=== PATIENT | female | born 2000 | race Caucasian/White ===

== ENCOUNTER 2020-10-12 14:09 | Outpatient (REF) | payer BC, MEDICAID, SELFPAY ==
[2020-10-13 11:00] LABS: BV Int Neg Control Negative (Negative); BV Int Pos Control Positive (Positive)
[2020-10-13 11:02] LABS: CT PCR NOT DETECTED (Not Detect.); NG PCR NOT DETECTED (Not Detect.)
[2020-10-17 20:12] LABS: HPV mRNA E6/E7 rflx Not Detected (Not Detected)
== END 2020-10-12 14:10 | disposition home or self-care (01) ==
LOC: HO.LAB 14:09
PROVIDERS: Visit Provider Advanced Practice Midwife
DX: Z01.419 Encounter for gynecological examination (general) (routine) without abnormal findings (principal); R68.82 Decreased libido; G43.009 Migraine without aura, not intractable, without status migrainosus; N89.8 Other specified noninflammatory disorders of vagina; M32.9 Systemic lupus erythematosus, unspecified; Z79.899 Other long term (current) drug therapy; Z20.2 Contact with and (suspected) exposure to infections with a predominantly sexual mode of transmission
CPT/HCPCS: 87480; 87491; 87510; 87591; 87624; 87625; 87660; 88142

== ENCOUNTER → 2020-12-06 13:51 | Outpatient (BNVA) | payer BC, MEDICAID, SELFPAY | PROVIDERS: Visit Provider Advanced Practice Midwife | DX: Z76.89 Persons encountering health services in other specified circumstances (principal) ==

== ENCOUNTER 2023-10-01 08:46 | Outpatient (AMB) | payer OTHER, SELFPAY ==
--- NOTE | 2023-10-01 08:50 | MHC.PC.OV ---
Vital Signs 10/01/23 08:51 Height 5 ft 2 in Intake Visit Reasons: physical Intake Note: Patient is here today for a physical. 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 Donor Relations Coordinator: Not Required per policy Accompanied by: Self / Same As Patient Allergies rituximab [RITUXIMAB] Allergy (Severe, Verified 10/01/23 08:51) ANAPHYLAXIS cinnamon [CINNAMON] Allergy (Unknown, Verified 10/01/23 08:51) RASH Tobacco use date assessed: 10/01/23 Dental Screening Dental Screen Date: 10/01/23 Did you have a dental visit in the last 12 months?: Yes Did you have a dental problem in the last 6 months where you did not have access to dental care?: No Was dental information given to patient?: Patient has dentist [facility] Medical History (Updated 04/03/23 @ 17:23 by SHANNA Barajas) Excessive cerumen in both ear canals Migraine with aura History of anxiety History of depression Stress headaches IBS (irritable bowel syndrome) Lupus Surgical History Hx of appendectomy Family History Maternal Aunt History of breast cancer Social History Housing: House Alcohol intake: current Alcohol intake frequency: holidays/special occasions only Patient Tobacco Use Status: Never used Tobacco e-Cigarette/Vaping Use: Never Used Second Hand Smoke Exposure: No service: No Current occupational status: unemployed Sexual orientation: Straight/Heterosexual Gender identity: Female Cognitive needs: No Hearing needs: No Vision needs: No Female Reproductive History Menstrual Age of Menarche: 17 Questionnaire Thrive Questionnaire Date Thrive assessed: 04/03/23 GERONIMO-7 AMB Questionnaire GERONIMO-7 Date GERONIMO - 7 assessed: 04/03/23 Source: Developed by Drs. Darrick Mejia, Michelle Mohamud, Jorge Luis Smith and colleagues, with an educational vega from [employer]. Physical exam (Primary Care) Tobacco/Smoking Status: Tobacco use Status Tobacco use date assessed 04/03/23 04/03/23 15:40 Patient Tobacco Use Status Never used Tobacco 04/03/23 15:40 e-Cigarette/Vaping Use Never Used 04/03/23 15:40 Thrive Assessment: Date of Thrive Assessment Date Thrive assessed 04/03/23 04/03/23 15:40 Coding
[2023-10-01 08:51] VITALS: BP 100/60; PULSE 85; O2SAT 96; BMI 22.2
--- NOTE | 2023-10-01 09:00 | MHC.PC.OV ---
Vital Signs 10/01/23 08:51 Height 5 ft 2 in Weight 121 lb 2 oz BMI 22.2 BP 100/60 Blood Pressure Location Lt brachial Position Sitting Pulse 85 Pulse Source Pulse Oximeter Pulse Oximetry (%) 96 Oxygen Delivery Method Room Air Intake Visit Reasons: physical Intake Note: Patient is here today for a physical. 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 per policy Accompanied by: Self / Same As Patient Allergies rituximab [RITUXIMAB] Allergy (Severe, Verified 10/01/23 09:16) ANAPHYLAXIS cinnamon [CINNAMON] Allergy (Unknown, Verified 10/01/23 09:16) RASH Medication List - Last Reconciled 10/01/23 by SHANNA Barajas albuterol sulfate 90 mcg/actuation (Ventolin HFA) 2 puffs inhalation Q4-6H PRN amitriptyline 25 mg PO BEDTIME azathioprine 100 mg PO DAILY cholecalciferol (vitamin D3) 25 mcg PO DAILY fexofenadine (Charley Allergy) 60 mg PO BID fluticasone propionate 50 mcg/actuation 1 spray intranasal DAILY hydroxychloroquine 300 mg PO DAILY omeprazole 40 mg PO DAILY ondansetron HCl 4 mg PO Q8H PRN Tobacco use date assessed: 10/01/23 Dental Screening Dental Screen Date: 10/01/23 Did you have a dental visit in the last 12 months?: No Did you have a dental problem in the last 6 months where you did not have access to dental care?: No Was dental information given to patient?: No HPI physical HPI Details Patient is a 23-year-old female who presents today for physical exam. Medical history significant for IBS - patient had GI referral-was not seen yet-will place new referral, history of anxiety and depression - not interested in counseling referral - amitriptyline 25 mg at bedtime prescribed by Rheumatology in [place], asthma, lupus - followed by Rheumatology in [place], migraine headaches without aura.? Patient is followed with rheumatology in [place] for lupus management.? Patient reports long-term IBS with diarrhea and constipation and she would like to be seen by a specialist. In addition, patient reports left arm eczema that started couple months ago and spread it in the past couple weeks to her face, reports using [id number] Vaseline and steroidal cream with no much improvement. Pap smear negative 10/2022 with [facility]. Tetanus vaccine up-to-date. Patient will call for dental exam. Up-to-date with eye exam. [facility] Medical History (Updated 10/01/23 @ 09:33 by SHANNA Barajas) Low libido Sinusitis Vaginal discharge Excessive cerumen in both ear canals Migraine with aura History of anxiety History of depression Stress headaches IBS (irritable bowel syndrome) Lupus Surgical History Hx of appendectomy Family History Maternal Aunt History of breast cancer Social History Housing: House Alcohol intake: current Alcohol intake frequency: holidays/special occasions only Patient Tobacco Use Status: Never used Tobacco e-Cigarette/Vaping Use: Never Used Second Hand Smoke Exposure: No service: No Current occupational status: unemployed Sexual orientation: Straight/Heterosexual Gender identity: Female Cognitive needs: No Hearing needs: No Vision needs: No Female Reproductive History Menstrual Age of Menarche: 17 Questionnaire Thrive Questionnaire Date Thrive assessed: 04/03/23 GERONIMO-7 AMB Questionnaire GERONIMO-7 Date GERONIMO - 7 assessed: 04/03/23 Source: Developed by Drs. Darrick Mejia, Michelle Mohamud, Jorge Luis Smith and colleagues, with an educational vega from [employer]. Review of Systems Const Denies body aches, Denies chills and Denies fever(s) Eyes Denies change in vision ENT Denies dizziness, Denies otalgia, Denies sinus pain and Denies sore throat Card Denies chest pain, Denies edema, Denies lightheadedness and Denies dyspnea Resp Denies chest congestion, Denies cough and Denies dyspnea GI Reports as per HPI, Denies abdominal pain, Reports constipation, Reports diarrhea, Denies nausea and Denies vomiting Denies dysuria Musc Denies myalgias Skin/Breast Denies lesions and Reports rash Neuro Denies dizziness Physical exam (Primary Care) Vital Signs: Last Vital Signs Pulse 85 10/01/23 08:51 BP 100/60 10/01/23 08:51 Pulse Ox 96 10/01/23 08:51 Oxygen Delivery Method Room Air 10/01/23 08:51 BMI result Body Mass Index 22.2 Tobacco/Smoking Status: Tobacco use Status Tobacco use date assessed 10/01/23 10/01/23 09:06 Patient Tobacco Use Status Never used Tobacco 10/01/23 09:06 e-Cigarette/Vaping Use Never Used 10/01/23 09:06 Thrive Assessment: Date of Thrive Assessment Date Thrive assessed 04/03/23 10/01/23 09:06 Const General: cooperative and no acute distress Orientation/consciousness: patient oriented x3 HENMT Head: Yes normocephalic and Yes atraumatic Ears: TM's normal bilaterally Face and sinus: Yes sinuses nontender Mouth: oropharynx normal and moist mucous membranes Throat: Yes posterior oropharynx normal Eyes General: appearance normal, both eyes and all related structures Pupils: Equal, round and reactive pupils present EOM: EOMs intact bilaterally Neck Neck: Yes normal visual inspection, Yes full ROM and Yes no lymphadenopathy Thyroid: Thyroid normal Resp Effort & Inspection: normal respiratory effort and able to speak in complete sentences Auscultation: clear to auscultation bilaterally, no crackles, no rales, no rhonchi and no wheezes Cardio Rate: regular rate Rhythm: regular rhythm Heart sounds: S1 normal heart sound present, S2 normal heart sound present and no murmurs GI Palpation (GI): Soft to palpation, not firm, nontender, no guarding, not rigid and no hepatosplenomegaly Auscultation: normal bowel sounds General: No CVA tenderness Back/Spine/Pelvis Back: No CVA tenderness Skin Other: Left neck with small slightly erythematous flat area, left AC arm with slightly erythematous flat area. Generalized face with small slightly flat erythematous areas. No signs of infection noted Neuro General: patient oriented x3 Cranial nerves: Yes Equal, round and reactive pupils present Gait exam (Neuro): Normal gait present Extrem General: Yes full ROM and No edema Assessment and Plan Assessment & Plan (1) IBS (irritable bowel syndrome): Code(s): K58.9 - Irritable bowel syndrome without diarrhea Plan: Gastroenterology referral for an evaluation and treatment She uses [id number] MiraLax p.r.n. for constipation (2) History of depression: Code(s): Z86.59 - Personal history of other mental and behavioral disorders Plan: She has declined counseling referral Amitriptyline 25 mg at bedtime - prescribed by rheumatology in [place] (3) History of anxiety: Code(s): Z86.59 - Personal history of other mental and behavioral disorders Plan: Same as above (4) Asthma: Code(s): J45.909 - Unspecified asthma, uncomplicated Plan: Stable Continue albuterol p.r.n. (5) Lupus: Comment: [facility] Dx age 12 Code(s): M32.9 - Systemic lupus erythematosus, unspecified Plan: Continue to follow-up with rheumatology Dr. Donovan in [place] (6) Migraine without aura: Code(s): G43.009 - Migraine without aura, not intractable, without status migrainosus Plan: Continue amitriptyline 25 mg at bedtime Patient can continue [id number] Advil or Tylenol as needed (7) Eczema: Code(s): L30.9 - Dermatitis, unspecified Plan: Dermatology referral Triamcinolone cream daily-do not use this cream on face Can continue zyeg-wah-mwphygm cortisone cream for face lesions as well as Vaseline (8) Adult general medical exam: Comment: Tdap UTD. Covid-19 IZs Pfizer x2. 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 Code(s): Z00.00 - Encounter for general adult medical examination without abnormal findings Orders: Orders Comprehensive Met. Panel Today Z00.00 - Encounter for general adult medical examination without abnormal findings Vitamin D 25-OH Total Today Z00.00 - Encounter for general adult medical examination without abnormal findings TSH reflex Free T4 Today Z00.00 - Encounter for general adult medical examination without abnormal findings Complete Blood Count Auto Diff Today Z00.00 - Encounter for general adult medical examination without abnormal findings Referrals Gastroenterology Referral K58.9 - Irritable bowel syndrome without diarrhea Dermatology Referral L30.9 - Dermatitis, unspecified Medications: New triamcinolone acetonide 0.1% 1 appl topical DAILY 14 days 15 grams 0RF L30.9 - Dermatitis, unspecified Coding Level of Care Code Est Pt Prev Care 18-39y(55261) Diagnoses IBS (irritable bowel syndrome) K58.9 History of depression Z86.59 History of anxiety Z86.59 Asthma J45.909 Lupus M32.9 Migraine without aura G43.009 Eczema L30.9 Adult general medical exam Z00.00
== END 2023-10-01 09:31 | disposition home or self-care (01) ==
PROVIDERS: Visit Provider Nurse Practitioner Family
DX: Z00.00 Encounter for general adult medical examination without abnormal findings (principal); M32.9 Systemic lupus erythematosus, unspecified; K58.9 Irritable bowel syndrome, unspecified; Z86.59 Personal history of other mental and behavioral disorders; J45.909 Unspecified asthma, uncomplicated; G43.009 Migraine without aura, not intractable, without status migrainosus; L30.9 Dermatitis, unspecified
CPT/HCPCS: 99395

== ENCOUNTER 2024-12-22 15:20 | Outpatient (AMB) | payer OTHER, SELFPAY ==
--- NOTE | 2024-12-22 15:30 | A.OFFPC_ITS ---
Vital Signs 12/22/24 15:32 Height 5 ft 2 in Weight 118 lb BMI 21.6 BP 112/62 Blood Pressure Location Lt brachial Position Sitting Pulse 75 Pulse Source Pulse Oximeter Temp 97.8 F Temp Source Skin Pulse Oximetry (%) 98 Oxygen Delivery Method Room Air Intake Visit Reasons: NADJA Dueñas Intake Note: Patient is here today for NADJA from [facility]. Pt decline flu shot today. Tailor Apprentice Required: No Pararescue Craftsman: Not Required per policy Accompanied by: Self / Same As Patient Allergies rituximab [RITUXIMAB] Allergy (Severe, Verified 12/22/24 15:52) ANAPHYLAXIS cinnamon [CINNAMON] Allergy (Unknown, Verified 12/22/24 15:52) RASH Medication List - Last Reconciled 12/22/24 by Deirdre Wells PA-C albuterol sulfate 90 mcg/actuation (Ventolin HFA) 2 puffs inhalation Q4-6H PRN amitriptyline 25 mg PO BEDTIME azathioprine 100 mg PO DAILY cholecalciferol (vitamin D3) 25 mcg PO DAILY fexofenadine (Charley Allergy) 60 mg PO BID hydroxychloroquine 300 mg PO DAILY omeprazole 40 mg PO DAILY ondansetron HCl 4 mg PO Q8H PRN triamcinolone acetonide 0.1% 1 appl topical DAILY 14 days Tobacco use date assessed: 12/22/24 Dental Screening Dental Screen Date: 12/22/24 Did you have a dental visit in the last 12 months?: No Did you have a dental problem in the last 6 months where you did not have access to dental care?: No Was dental information given to patient?: No HPI NADJA Dueñas HPI Details 24-year-old female with past medical his tory migraine, lupus, asthma, anxiety, depression, IBS last seen by nurse practitioner 09/2023 coming in for transfer of care. Patient tells us today she sees a specialist in [place] for management of her lupus and the specialist also manages her acid reflux as well as her migraines. She states she often will have migraines and feels the amitriptyline does not help. She will have a migraine 3-4 times per week that are typically one-sided and will be accompanied with nausea and occasionally vomiting. She also feels her acid reflux has been worsening despite the use of omeprazole 40 mg. She was previously being seen by a GI specialist but has not been seen in many years. Lastly she mentions she will have occasional episodes of chest pain that feel like a pressure and does not identify any inciting or relieving factors. She does mentioned however these episodes have becoming more frequent and more intense and denies any palpitations. [facility] Medical History (Updated 12/22/24 @ 16:02 by Deirdre Wells PA-C) Low libido Sinusitis Vaginal discharge Excessive cerumen in both ear canals Migraine with aura History of anxiety History of depression Stress headaches IBS (irritable bowel syndrome) Lupus Surgical History Hx of appendectomy Family History Maternal Aunt History of breast cancer Social History Housing: House Alcohol intake: current Alcohol intake frequency: holidays/special occasions only Patient Tobacco Use Status: Never used Tobacco e-Cigarette/Vaping Use: Never Used Second Hand Smoke Exposure: No service: No Current occupational status: employed and student Sexual orientation: Straight/Heterosexual Gender identity: Female Cognitive needs: No Hearing needs: No Vision needs: Yes (Glasses) Female Reproductive History Menstrual Age of Menarche: 17 control method: none Total pregnancies: 0 History of abnormal pap smear: No Questionnaire PHQ-9 Over the last 2 weeks, how often have you been bothered by any of the following problems? 1. Little interest or pleasure in doing things: several days 2. Feeling down, depressed, or hopeless: nearly every day 3. Trouble falling or staying asleep, or sleeping too much: nearly every day 4. Feeling tired or having little energy: nearly every day 5. Poor appetite or overeating: nearly every day 6. Feeling bad about yourself - or that you are a failure or have let yourself or your family down: nearly every day 7. Trouble concentrating on things, such as reading the newspaper or watching television: several days 8. Moving or speaking so slowly that other people could have noticed. Or the opposite - being so fidgety or restless that you have been moving around a lot more than usual: several days 9. Thoughts that you would be better off or of hurting yourself in some way: not at all Total score: 18 Depression Screening Interpretation: Positive Depression Screening Follow-up: Existing condition and Declines treatment Depression Screening Done: Yes Source: Developed by Drs. Darrick Mejia, Michelle Mohamud, Jorge Luis Smith and colleagues, with an educational vega from [employer]. Thrive Questionnaire Date Thrive assessed: 12/22/24 I am a: Patient What is your living situation today?: I have a steady place to live Within the past 12 months, did the food you bought not last and you didn't have the money to get more?: Never true Within the past 12 months, did you worry whether your food would run out before you got money to buy more?: Never true Do you have trouble paying for medicines?: No Do you have trouble getting transportation to medical appointments?: No Do you have trouble paying your heating and electricity bill?: No Do you have trouble taking care of your child, family member or friend?: No Do you have trouble with day-to-day activities such as bathing, preparing meals, shopping, managing finances, etc.?: No Are you currently unemployed and looking for a job?: No Are you interested in more education?: No Please select the resources that you would like help with: None Currently or been in a relationship where the following occur: No concerns reported THRIVE Score: 0 AUDIT C Alcohol Use Questionnaire (AUDIT-C) 1. How often do you have a drink containing alcohol?: Never Total Score: 0 GERONIMO-7 AMB Questionnaire GERONIMO-7 Date GERONIMO - 7 assessed: 12/22/24 Feeling nervous, anxious, or on edge: 3 = Nearly every day Not being able to stop or control worryin = Nearly every day Worrying too much about different things: 3 = Nearly every day Trouble relaxin = Nearly every day Being so restless that it is hard to sit still: 1 = Several days Becoming easily annoyed or irritable: 1 = Several days Feeling afraid as if something awful might happen: 1 = Several days Total GERONIMO-7 score (0-4 normal; 5-9 mild; 10-14 moderate; 15-21 severe): 15 Source: Developed by Michelle Caldwell Kurt Kroenke and colleagues, with an educational vega from [employer]. GERONIMO-7 Assessment Billing GERONIMO-7 Assessment Tool: GERONIMO-7 Assessment 12709 Review of Systems Const Denies body aches, Denies chills, Denies fever(s), Reports headache(s) and Denies poor appetite Eyes Reports no additional complaints and Reports requires corrective lenses ENT Denies dysphagia, Denies dizziness, Reports headache(s) and Denies odynophagia Card Reports chest pain, Denies syncope, Denies edema, Denies irregular heart rhythm, Denies lightheadedness and Reports dyspnea Resp Denies cough and Reports dyspnea GI Denies abdominal pain, Reports constipation, Denies dysphagia, Reports dyspepsia, Reports diarrhea, Reports nausea, Denies odynophagia and Reports vomiting Reports no additional complaints Musc Reports no additional complaints and Denies abnormal gait Skin/Breast Reports system reviewed and no additional complaints, except as documented Neuro Denies abnormal gait, Denies dizziness, Denies syncope and Reports headache(s) Psych Reports no additional complaints Physical exam (Primary Care) Vital Signs: Last Vital Signs Temp 97.8 F 12/22/24 15:32 Pulse 75 12/22/24 15:32 BP 112/62 12/22/24 15:32 Pulse Ox 98 12/22/24 15:32 Oxygen Delivery Method Room Air 12/22/24 15:32 BMI result Body Mass Index 21.6 Tobacco/Smoking Status: Tobacco use Status Tobacco use date assessed 12/22/24 12/22/24 15:38 Patient Tobacco Use Status Never used Tobacco 12/22/24 15:38 e-Cigarette/Vaping Use Never Used 12/22/24 15:38 PHQ-9: PHQ-9 Score PHQ-9: Total score 18 12/22/24 15:55 Depression Screening Interpretation: Positive Depression Screening Follow-up: Existing condition and Declines treatment Thrive Assessment: Date of Thrive Assessment Date Thrive assessed 12/22/24 12/22/24 15:38 Currently or been in a relationship where the following occur: No concerns reported Const General: cooperative, healthy appearing, comfortable and no acute distress Orientation/consciousness: patient oriented x3 HENMT Head: Yes normocephalic Ears: hearing grossly normal bilaterally General nose exam: Normal external nose present Eyes General: appearance normal, both eyes and all related structures Conjunctivae: conjunctivae normal Neck Neck: Yes full ROM and Yes no lymphadenopathy Resp Effort & Inspection: normal respiratory effort Auscultation: clear to auscultation bilaterally, no crackles, no rales, no rhonchi and no wheezes Cardio Rate: regular rate Rhythm: regular rhythm Skin General skin exam: no rashes or lesions noted Neuro General: patient oriented x3 Gait exam (Neuro): Normal gait present Extrem General: Yes normal to inspection, Yes full ROM and No edema Psych Affect: normal affect Attitude: cooperative Insight: Good insight present (Psych) Judgement: Good judgement present (Psych) Coding Level of Care Code Est Pt Level 4 (06426) Diagnoses IBS (irritable bowel syndrome) K58.9 History of depression Z86.59 History of anxiety Z86.59 Asthma J45.909 Lupus M32.9 Migraine with aura G43.109 Chest pain R07.9 GERD (gastroesophageal reflux disease) K21.9 Cervical cancer screening Z12.4 Additional Codes GERONIMO-7 Assessment Billing - GERONIMO-7 Assessment Tool: GERONIMO-7 Assessment 63206 ([id number]) Assessment & Plan Assessment & Plan (1) IBS (irritable bowel syndrome): Code(s): K58.9 - Irritable bowel syndrome, unspecified Category: Medical Plan: Patient has alternating constipation and diarrhea consistent with IBS which has a previous diagnosis of hers. Discussed with patient about diet modification and can consider referral to GI (2) History of depression: Code(s): Z86.59 - Personal history of other mental and behavioral disorders Category: Medical Plan: Patient has a history of depression as well as anxiety but declines the need for medication or counseling at this time. (3) History of anxiety: Code(s): Z86.59 - Personal history of other mental and behavioral disorders Category: Medical Plan: Patient has a history of anxiety and depression and does have a positive PHQ-9 and geronimo 7 today however she is declining treatment at this time. She agrees to reach out if symptoms worsened or if she would like to pursue treatment through counseling or medical management. (4) Asthma: Code(s): J45.909 - Unspecified asthma, uncomplicated Category: Medical Plan: Asthma currently controlled on present medications. Continue on albuterol as needed. Avoid triggers such as allergies. (5) Lupus: Comment: [facility] Dx age 12 Code(s): M32.9 - Systemic lupus erythematosus, unspecified Category: Medical Plan: Continues to follow with specialist in [place] and currently on hydroxychloroquine. She is following with [place] [facility] and plan to switch to an adult provider in the [place] network in the next several years. (6) Migraine with aura: Code(s): G43.109 - Migraine with aura, not intractable, without status migrainosus Category: Medical Plan: Patient continues to have migraines despite the use of amitriptyline we will have 3-4 migraines per week accompanied with occasional nausea and vomiting. We will try sumatriptan as abortive medication for the migraines and a plan to refer to Neurology if sumatriptan is not useful. Patient was previously evaluated by neurologist in the past but has not been seen in many years. (7) Chest pain: Code(s): R07.9 - Chest pain, unspecified Category: Medical Plan: Patient complaining of chest pain and pressure occasionally accompanied by shortness of breath sometimes worse with walking or exercise but we will typically come on randomly. Ordered for stress test for further evaluation. (8) GERD (gastroesophageal reflux disease): Code(s): K21.9 - Gastro-esophageal reflux disease without esophagitis Category: Medical Plan: Avoid trigger foods such as citrus, tomato products, soda, caffeine, spicy foods and other foods that may be irritating to your stomach. Avoid laying flat 3-4 hours after eating and elevate the head of the bed 30 degrees to prevent acid from moving into the esophagus. Continue on omeprazole 40 mg. She feels her symptoms are not well managed and has been omeprazole for quite some time. Referral placed for upper GI series further evaluation (9) Cervical cancer screening: Code(s): Z12.4 - Encounter for screening for malignant neoplasm of cervix Category: Medical Plan: Referral placed to gynecology for cervical cancer screening Plan I ordered for updated blood work and patient will follow up in 2 months or sooner if new problems arise and pending blood work. This note was constructed using voice recognition software. While every effort has been made to ensure accuracy and senior benefits manager, still areas may have been included sometimes these areas may affect the content or meeting of the given symptoms. Total time spent caring for the patient today was 20 minutes. This includes time spent before the visit reviewing the chart, time spent during the visit, and time spent after the visit and documentation. Orders: Orders Comprehensive Met. Panel Today Z00.00 - Encounter for general adult medical examination without abnormal findings Complete Blood Count Auto Diff Today Z00.00 - Encounter for general adult medical examination without abnormal findings Vitamin D 25-OH Total Today Z00.00 - Encounter for general adult medical examination without abnormal findings TSH reflex Free T4 Today Z00.00 - Encounter for general adult medical examination without abnormal findings Free T4 (Free Thyroxine) Today Z00.00 - Encounter for general adult medical examination without abnormal findings Vitamin B12 and Folate Today Z00.00 - Encounter for general adult medical examination without abnormal findings CA stress test Today R07.9 - Chest pain, unspecified [place] upper GI series Today K21.9 - Gastro-esophageal reflux disease without esophagitis Referrals [employer]ENT Referral Z12.4 - Encounter for screening for malignant neoplasm of cervix Optometry Referral Z00.00 - Encounter for general adult medical examination without abnormal findings Medications: New sumatriptan succinate take 1 tab at onset of headache; if no relief may repeat 1 tab after at least 2 hrs; max = 4 tabs/24 hr PO 30 tabs 0RF
[2024-12-22 15:32] VITALS: BP 112/62; PULSE 75; TEMP 36.6; O2SAT 98; BMI 21.6
== END 2024-12-22 16:07 | disposition home or self-care (01) ==
PROVIDERS: PCP Nurse Practitioner Family
DX: K58.9 Irritable bowel syndrome, unspecified (principal); Z86.59 Personal history of other mental and behavioral disorders; J45.909 Unspecified asthma, uncomplicated; M32.9 Systemic lupus erythematosus, unspecified; G43.109 Migraine with aura, not intractable, without status migrainosus; R07.9 Chest pain, unspecified; K21.9 Gastro-esophageal reflux disease without esophagitis; Z12.4 Encounter for screening for malignant neoplasm of cervix

== ENCOUNTER → 2024-12-22 15:20 | Outpatient (BNVA) | payer OTHER, SELFPAY | PROVIDERS: PCP Nurse Practitioner Family | DX: K58.9 Irritable bowel syndrome, unspecified (principal); J45.909 Unspecified asthma, uncomplicated; M32.9 Systemic lupus erythematosus, unspecified; R07.9 Chest pain, unspecified; K21.9 Gastro-esophageal reflux disease without esophagitis; Z86.59 Personal history of other mental and behavioral disorders | CPT/HCPCS: 96127; 99212 ==

== ENCOUNTER 2025-03-11 08:15 | Outpatient (REF) | payer OTHER, SELFPAY ==
--- NOTE | ~2025-03-11 | FL_ITS ---
EXAMINATION: XR FLUOROSCOPY UPPER GI WITH AIR CLINICAL INFORMATION: Gastroesophageal reflux disease without esophagitis COMPARISON: None available. TECHNIQUE: Routine upper GI contrast study was performed in upright and lying position. FINDINGS: Oral and oral administration of thick barium and effervescent granules there is normal propagation bolus from the oral cavity through the pharynx, esophagus into stomach without any evidence of obstruction, narrowing or stricture. No extrinsic compression seen. On placing patient in supine and prone lying the course, caliber and peristalsis of the stomach, duodenal bulb and sweep is normal. There is mild gastroesophageal reflux without hiatal hernia. The mucosal pattern of stomach, duodenal bulb and sweep is normal. FLUOROSCOPY TIME: 1 minute 23 seconds DOSE AREA PRODUCT: 725.3 uGy-m2 (microgray-meter squared) FL/FL upper GI w air IMPRESSION: Mild gastroesophageal reflux without hiatal hernia. Electronically signed by: Kyle Garner MD 03/11/2025 09:28 AM EDT
== END 2025-03-11 08:16 | disposition home or self-care (01) ==
LOC: HO.XRAY 08:15
PROVIDERS: Visit Provider Physician Assistant
DX: K21.9 Gastro-esophageal reflux disease without esophagitis (principal)
CPT/HCPCS: 74246

== ENCOUNTER → 2025-03-11 08:20 | Outpatient (BNV) | payer OTHER, SELFPAY | PROVIDERS: Visit Provider Radiology Diagnostic Radiology | DX: K21.9 Gastro-esophageal reflux disease without esophagitis (principal) | CPT/HCPCS: 74246 ==

== ENCOUNTER 2025-07-08 14:26 | Outpatient (AMB) | payer OTHER, SELFPAY ==
--- NOTE | 2025-07-08 14:31 | A.OFFPC_ITS ---
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 Accompanied by: Self / Same As Patient Allergies rituximab (RITUXIMAB) Allergy (Severe, Verified 07/08/25 14:48) ANAPHYLAXIS cinnamon (CINNAMON) Allergy (Unknown, Verified 07/08/25 14:48) RASH Medication List - Last Reconciled 07/08/25 by Deirdre Wells PA-C albuterol sulfate 90 mcg/actuation (Ventolin HFA) 2 puffs inhalation Q4-6H PRN amitriptyline 25 mg PO BEDTIME azathioprine 100 mg PO DAILY cholecalciferol (vitamin D3) 25 mcg PO DAILY fexofenadine (Charley Allergy) 60 mg PO BID hydroxychloroquine 300 mg PO DAILY omeprazole 40 mg PO DAILY ondansetron HCl 4 mg PO Q8H PRN sumatriptan succinate take 1 tab at onset of headache; if no relief may repeat 1 tab after at least 2 hrs; max = 4 tabs/24 hr PO triamcinolone acetonide 0.1% 1 appl topical DAILY 14 days Tobacco use date assessed: 07/08/25 Dental Screening Dental Screen Date: 07/08/25 Did you have a dental visit in the last 12 months?: No Did you have a dental problem in the last 6 months where you did not have access to dental care?: No Was dental information given to patient?: No HPI f/u GERD, resched HPI Details 24-year-old female with past medical his tory migraine, lupus, asthma, anxiety, depression, IBS last seen 11/2024 coming in for follow up. Presenting with migraine, gastroesophageal reflux disease, irritable bowel syndrome, asthma, and chronic urticaria. The patient reports daily migraines, with current treatment being amitriptyline at bedtime, which has not been effective. GERD Diagnosed via upper GI series, the patient is on omeprazole and advised to switch to famotidine. The patient experiences constipation and diarrhea, with previous dietary advice not recalled. Persistent hives on the back, unresponsive to antihistamines and creams. [facility] Medical History (Updated 07/08/25 @ 14:59 by Deirdre Wells PA-C) Low libido Sinusitis Vaginal discharge Excessive cerumen in both ear canals Migraine with aura History of anxiety History of depression Stress headaches IBS (irritable bowel syndrome) Lupus Surgical History Hx of appendectomy Family History Maternal Aunt History of breast cancer Social History Housing: House Alcohol intake: current Alcohol intake frequency: holidays/special occasions only Patient Tobacco Use Status: Never used Tobacco e-Cigarette/Vaping Use: Never Used Second Hand Smoke Exposure: No service: No Current occupational status: employed and student Sexual orientation: Straight/Heterosexual Gender identity: Female Cognitive needs: No Hearing needs: No Vision needs: Yes (Glasses) Female Reproductive History Menstrual Age of Menarche: 17 Questionnaire PHQ-9 Over the last 2 weeks, how often have you been bothered by any of the following problems? 1. Little interest or pleasure in doing things: more than half the days 2. Feeling down, depressed, or hopeless: nearly every day 3. Trouble falling or staying asleep, or sleeping too much: nearly every day 4. Feeling tired or having little energy: nearly every day 5. Poor appetite or overeating: several days 6. Feeling bad about yourself - or that you are a failure or have let yourself or your family down: more than half the days 7. Trouble concentrating on things, such as reading the newspaper or watching television: several days 8. Moving or speaking so slowly that other people could have noticed. Or the opposite - being so fidgety or restless that you have been moving around a lot more than usual: more than half the days 9. Thoughts that you would be better off or of hurting yourself in some way: not at all Total score: 17 90008 - PHQ-9 Billing: Yes Source: Developed by Drs. Darrick Mejia, Michelle Mohamud, Jorge Luis Smith and colleagues, with an educational vega from [employer]. Thrive Questionnaire Date Thrive assessed: 07/08/25 I am a: Patient What is your living situation today?: I have a steady place to live Within the past 12 months, did the food you bought not last and you didn't have the money to get more?: I choose not to answer this question Within the past 12 months, did you worry whether your food would run out before you got money to buy more?: I choose not to answer this question Do you have trouble paying for medicines?: No Do you have trouble getting transportation to medical appointments?: No Do you have trouble paying your heating and electricity bill?: No Do you have trouble taking care of your child, family member or friend?: No Do you have trouble with day-to-day activities such as bathing, preparing meals, shopping, managing finances, etc.?: No Are you currently unemployed and looking for a job?: No Are you interested in more education?: Yes Please select the resources that you would like help with: None Currently or been in a relationship where the following occur: I choose not to answer THRIVE Score: 0 AUDIT C Alcohol Use Questionnaire (AUDIT-C) 1. How often do you have a drink containing alcohol?: Monthly or less 2. How many drinks containing alcohol do you have on a typical day when you are drinking?: 1 or 2 3. How often do you have six or more drinks on one occasion?: Never Total Score: 1 GERONIMO-7 AMB Questionnaire GERONIMO-7 Date GERONIMO - 7 assessed: 07/08/25 Feeling nervous, anxious, or on edge: 3 = Nearly every day Not being able to stop or control worryin = Nearly every day Worrying too much about different things: 3 = Nearly every day Trouble relaxin = More than half the days Being so restless that it is hard to sit still: 2 = More than half the days Becoming easily annoyed or irritable: 2 = More than half the days Feeling afraid as if something awful might happen: 1 = Several days Total GERONIMO-7 score (0-4 normal; 5-9 mild; 10-14 moderate; 15-21 severe): 16 Source: Developed by Drs. Darrick Mejia, Michelle Mohamud, Jorge Luis Smith and colleagues, with an educational vega from [employer]. GERONIMO-7 Assessment Billing GERONIMO-7 Assessment Tool: GERONIMO-7 Assessment 29013 Review of Systems Const Denies body aches, Denies chills, Denies fever(s), Denies headache(s) and Denies poor appetite Eyes Reports no additional complaints ENT Denies dizziness and Denies headache(s) Card Denies chest pain, Denies edema, Denies irregular heart rhythm, Denies lightheadedness and Denies dyspnea Resp Denies dyspnea GI Denies abdominal pain, Denies nausea and Denies vomiting Reports no additional complaints Musc Reports no additional complaints and Denies abnormal gait Skin/Breast Reports system reviewed and no additional complaints, except as documented Neuro Denies abnormal gait, Denies dizziness and Denies headache(s) Psych Reports no additional complaints Physical exam (Primary Care) Vital Signs: Last Vital Signs Pulse 101 H 07/08/25 14:32 BP 120/82 07/08/25 14:32 Pulse Ox 99 07/08/25 14:32 Oxygen Delivery Method Room Air 07/08/25 14:32 BMI result Body Mass Index 22.0 Tobacco/Smoking Status: Tobacco use Status Tobacco use date assessed 07/08/25 07/08/25 14:36 Patient Tobacco Use Status Never used Tobacco 07/08/25 14:36 e-Cigarette/Vaping Use Never Used 07/08/25 14:36 PHQ-9: PHQ-9 Score PHQ-9: Total score 17 07/08/25 14:48 Thrive Assessment: Date of Thrive Assessment Date Thrive assessed 07/08/25 07/08/25 14:36 Currently or been in a relationship where the following occur: I choose not to answer Const General: cooperative, healthy appearing, comfortable and no acute distress Orientation/consciousness: patient oriented x3 HENMT Head: Yes normocephalic Ears: hearing grossly normal bilaterally General nose exam: Normal external nose present Eyes General: appearance normal, both eyes and all related structures Conjunctivae: conjunctivae normal Neck Neck: Yes full ROM and Yes no lymphadenopathy Resp Effort & Inspection: normal respiratory effort Auscultation: clear to auscultation bilaterally, no crackles, no rales, no rhonchi and no wheezes Cardio Rate: regular rate Rhythm: regular rhythm Skin Other: Faint maculopapular rash on the back General skin exam: no rashes or lesions noted Neuro General: patient oriented x3 Gait exam (Neuro): Normal gait present Extrem General: Yes normal to inspection, Yes full ROM and No edema Psych Affect: normal affect Attitude: cooperative Insight: Good insight present (Psych) Judgement: Good judgement present (Psych) Coding Level of Care Code Est Pt Level 3 (97654) Diagnoses IBS (irritable bowel syndrome) K58.9 Asthma J45.909 Lupus M32.9 Migraine with aura G43.109 Chest pain R07.9 GERD (gastroesophageal reflux disease) K21.9 Hives L50.9 Additional Codes GERONIMO-7 Assessment Billing - GERONIMO-7 Assessment Tool: GERONIMO-7 Assessment 01777 ([id number]) PHQ-9 - 86708 - PHQ-9 Billing: Yes ([id number]) Assessment & Plan Assessment & Plan (1) IBS (irritable bowel syndrome): Code(s): K58.9 - Irritable bowel syndrome, unspecified Category: Medical Plan: Patient has alternating constipation and diarrhea consistent with IBS which has a previous diagnosis of hers. Discussed with patient about diet modification as she has not changed her diet and was given Low FODMAP diet information. Consider referral to GI. (2) Asthma: Code(s): J45.909 - Unspecified asthma, uncomplicated Category: Medical Plan: Asthma currently controlled on present medications. Continue on albuterol as needed. Avoid triggers such as allergies. (3) Lupus: Comment: [facility] Dx age 12 Code(s): M32.9 - Systemic lupus erythematosus, unspecified Category: Medical Plan: Continues to follow with specialist in [place] and currently on hydroxychloroquine. She is following with [facility] and plan to switch to an adult provider in the [place] network in the next several years. (4) Migraine with aura: Code(s): G43.109 - Migraine with aura, not intractable, without status migrainosus Category: Medical Plan: Patient continues to have migraines despite the use of amitriptyline will have 3-4 migraines per week accompanied with occasional nausea and vomiting. We will try sumatriptan as abortive medication as she has not tried this yet despite previous prescription. 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 Referral was also placed to Neurology today (5) Chest pain: Code(s): R07.9 - Chest pain, unspecified Category: Medical Plan: Patient complaining of chest pain and pressure occasionally accompanied by shortness of breath sometimes worse with walking or exercise but we will typically come on randomly. Stress test was ordered at last visit but was not completed by the patient due to work. Reordered today. (6) GERD (gastroesophageal reflux disease): Code(s): K21.9 - Gastro-esophageal reflux disease without esophagitis Category: Medical Plan: Avoid trigger foods such as citrus, tomato products, soda, caffeine, spicy foods and other foods that may be irritating to your stomach. Avoid laying flat 3-4 hours after eating and elevate the head of the bed 30 degrees to prevent acid from moving into the esophagus. Upper GI series showing GERD plan to switch to famotidine 40mg. (7) Hives: Code(s): L50.9 - Urticaria, unspecified Category: Medical Plan: Patient was started on famotidine as an H2 adrienne and referral was placed to wastewater superintendent today Plan The patient's amitriptyline dosage will be increased to 50 mg at bedtime to improve migraine management, with instructions to report any side effects. A neurologist referral is also planned for further evaluation. For GERD, the patient will switch from omeprazole to pantoprazole, with dietary modifications to be provided. The patient will receive guidance on managing IBS through dietary changes. Asthma management will continue with albuterol as needed, with no current exacerbations reported. For chronic urticaria, an wastewater superintendent referral is planned, and famotidine will be prescribed to help manage symptoms. This note was constructed using voice recognition software. While every effort has been made to ensure accuracy and benefits specialist recruiter, still areas may have been included sometimes these areas may affect the content or meeting of the given symptoms. Total time spent caring for the patient today was twenty minutes. This includes time spent before the visit reviewing the chart, time spent during the visit, and time spent after the visit and documentation. Patient was informed and verbally consented to the use of an ambient scribe for clinic note documentation during this visit. Orders: Orders CA stress test Today R07.9 - Chest pain, unspecified Referrals Allergy & Immunology Referral L50.9 - Urticaria, unspecified Neurology Referral G43.109 - Migraine with aura, not intractable, without status migrainosus Medications: New famotidine 40 mg PO BEDTIME 90 tabs 0RF amitriptyline 50 mg PO BEDTIME 30 tabs 0RF Refilled sumatriptan succinate take 1 tab at onset of headache; if no relief may repeat 1 tab after at least 2 hrs; max = 4 tabs/24 hr PO 30 tabs 0RF albuterol sulfate 90 mcg/actuation (Ventolin HFA) 2 puffs inhalation Q4-6H PRN 8.5 grams 1RF shortness of breath or wheezing J45.909 - Unspecified asthma, uncomplicated
[2025-07-08 14:32] VITALS: BP 120/82; PULSE 101; O2SAT 99; BMI 22.0
--- OUTSIDE RECORDS SUMMARY | 2025-07-08 15:09 | XMS_ITS | Clinical Summary ---
Author Organization [facility] Address [address] [address] Phone Care Team Providers Care Welding Specialist Name Role Phone Mili Mckee MD Primary Care Provider [phone] Allergies Active Allergy Reactions Criticality Noted Date Comments Cinnamon 01/06/2021 Rituximab Anaphylaxis,Shortness Of Breath High 12/26 Medications hydrOXYchloroQU INE (PLAQUENIL) 200 mg tablet Take 300 mg by mouth daily. 11/14/2020 Active CHOLECALCIFEROL 25 mcg (1,000 unit) tablet Take 1,000 Units by mouth daily. 12/19/2020 Active omeprazole (PRILOSEC) 40 MG capsule Take by mouth daily. 11/11/2020 Active fexofenadine HCl (OKSANA ALLERGY ORAL) Take by mouth. PRN Active AZASAN 100 mg tablet Take 100 mg by mouth daily. 12/13/2020 Active ondansetron (ZOFRAN) 4 MG tablet take 1 tablet by mouth every 8 hours as needed for nausea and vomiting 10/07/2023 Active triamcinolone acetonide 0.1 % cream APPLY TO AFFECTED AREA ONCE DAILY FOR 14 DAYS 10/01/2023 Active azaTHIOprine (IMURAN) 50 mg tablet TAKE 3 TABLETS BY MOUTH EVERY DAY FOR 90 DAYS 09/27/2023 Active cranberry fruit 400 mg Tab Take 400 mg by mouth daily. Active zinc sulfate 50 mg zinc (220 mg) Tab Take 220 mg by mouth daily. Active omega-3 fatty acids-fish oil 340-1,000 mg Cap Take by mouth daily. 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 Overview (02/06/2021): Added by [facility] Systemic lupus erythematosus 02/06/2021 Overview (02/06/2021): diagnosed March 2013 Anxiety 02/06/2021 Mild intermittent asthma without complication Immunizations Immunization Administration Dates Next Due HPV9 07/03/2016,03/01/2016 Hepatitis A, ped/adol, 2 dose 02/12/2017, 016 Meningococcal MCV4P 02/12/2017 Tdap 06/07/2024,11/10/2023 Social History Tobacco Use Types Packs/Day Years Used Date Smoking Tobacco: Never Smokeless Tobacco: Never Tobacco Cessation:Counseling Given: Not Answered Alcohol Use Standard Drinks/Week Comments Never 0 (1 standard drink = 0.6 oz pur e alcohol) Education Answer Date Recorded Are you interested in more education? Not on jeffrey e 03/21/2023 Are you concerned about learning? Not on file 03/21/2023 No 03/21/2023 No 03/21/2023 Digital Access Answer Date Recorded No 04/22/2023 No 04/22/2023 Reliable internet access at home? Not on file 04/22/2023 Device with a working camera? Not on file Intimate Partner Violence Answer Date R ecorded Are you denied basic needs s uch as food, clothing, or medical care? No 06/07/2024 In the past 12 months have y ou been in a relationship with a person who hurts, threatens, or tries to control you? No 06/07/2024 Are you denied basic needs s [facility] as food, clothing, or medical care? No 06/07/2024 In the past 12 months have y ou been in a relationship with a person who hurts, threatens, or tries to control you? No 06/07/2024 Comments Unknown Sex and Gender Information Value Date Recorded Sex Assigned at Female 06/07/2024 11:27 AM EDT Legal Sex Female 8:53 AM EDT Gender Identity Female 06/07/2024 11:27 AM EDT Sexual Orientation Don't know 06/07/2024 11 :27 AM EDT Last Filed Vital Signs Vital Sign Reading Time Taken Comments Blood Pressure 120/78 06/07/2024 12:53 PM EDT Pulse 69 06/07/2024 12:53 PM EDT Temperature 36.7 C (98 F) 06/07/2024 12:53 PM EDT Respiratory Rate 18 06/07/2024 12:53 PM EDT Oxygen Saturation 99% 06/07/2024 12:53 PM EDT Inhaled Oxygen Concentration - - Weight 52.2 kg (115 lb) 06/07/2024 11:17 AM EDT Height 156 cm (5' 1.4 ) 11/10/2023 2:51 PM EST Body Mass Index 21.45 11/10/2023 2:51 PM EST Plan of Treatment Health Maintenance Due Date Last Done Comments DEPRESSION SCREENING 2011 SMOKING Hx and SMOKELESS TOBACCO SCREENING 2012 HPV VACCINES (3 - 3-dose series) 09/25/2016 07/03/2016, 03/01/2016 HEPATITIS C SCREENING 2017 HIV ONE-TIME SCREENING (18-6 5 YEARS) 2017 PNEUMOCOCCAL VACCINES (0-49 years) (1 of 2 - PCV) 2018 PAP SMEAR 2020 COVID-19 VACCINE (3 - Pfizer risk series) 06/20/2021 05/23/2021, 05/02/2021 ALKALINE PHOSPHATASE LEVEL 02/06/202202/06, 02/06/2021 CREATININE LEVEL 02/06/2022 02/06/2021 Adult Td,Tdap Booster 06/07/2034 06/07/2024 , 11/10/2023 HEPATITIS A VACCINES Completed 02/12/2017, 03/01/2016 MENINGOCOCCAL VACCINES (ACWY) Completed 02/12/2017 HIB VACCINES Aged Out No longer eligi ble based on patient's age to complete this topic MENINGOCOCCAL VACCINES (B) Aged Out N o longer eligible based on patient's age to complete this topic Medical Devices Not on file Procedures Procedure Name Priority Date/Time Associated Diagnosis Comments COMPREHENSIVE METABOLIC PANEL Routine 02/06/2021 3:40 PM EDT Pruritus from Last 3 Months or Most Recently Relevant to Health Maintenance Results * Comprehensive metabolic panel (02/06/2021 3:40 PM EDT) SODIUM 138 133 - 146 mmol/L [facility] POTASSIUM 4.7 3.3 - 5.1 mmol/L [facility] CHLORIDE 104 96 - 108 mmol/L [facility] CO2 25 21 - 35 mmol/L [facility] BUN 10 6 - 19 mg/dL [facility] CREATININE 0.60 0.5 - 1.5 mg/dL [facility] GLUCOSE 89 70 - 99 mg/dL [facility] ALBUMIN 4.1 3.9 - 4.8 g/dL [facility] TOTAL PROTEIN 7.0 6.5 - 8.0 g/dL [facility] CALCIUM 9.2 8.4 - 10.3 mg/dL [facility] ALKALINE PHOSPHATASE 113 39 - 117 U/L [facility] TOTAL BILIRUBIN 0.2 0.0 - 1.2 mg/dL [facility] AST 29 0 - 37 U/L [facility] ALT 16 0 - 40 U/L [facility] GLOBULIN 2.9 1 - 4.8 g/dL [facility] EGFR >120 >59 mL/min/1.7 3m2 [facility] Comment:Estimated glomerular filtration rate calculated using the CKD-EPI equation. ANION GAP 14 10 - 20 mmol/L [facility] Blood 02/06/2021 3:40 PM EDT 02/06/2021 4:59 PM EDT Marcelle Romeo CABLE TOWER OPERATOR LAB BLOOD ORDERABLES Final Result [address] [address] from Last 3 Months or Most Recently Relevant to Health Maintenance Insurance [facility] [place] [address] [place] [address] [place] [address] [place] [address] A[employer] Care Teams Welding Specialist Relationship Specialty Start Date End Date Mili Mckee MD [address] [place] [address] [email or web address] PCP - General Pediatrics 03/02/16 Additional Source Comments The information contained in this document represents components of the legal health record. It is not the complete legal health record.[facility]
--- OUTSIDE RECORDS SUMMARY | 2025-07-08 15:09 | XMS_ITS | Clinical Summary ---
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 albuterol (ProAir RespiClick) 90 mcg/act breath-activate d inhaler Dose Amount: 1 puff, INH, Q6hr, PRN as needed for shortness of breath or wheezing, Dispense Quantity: 2 EA, Refills: 1, Entered: 12/05/21 17:01:00 EST, [facility] 2 Active fexofenadine (Charley [facility]) 60 mg tablet Dose: 60 mg, Dose Amount: 1 tab, PO, daily, Entered: 08/25/19 13:58:53 EDT 9 Active ketoconazole (NIZOral) 2 % shampoo Dose Amount: 1 appl, TOP, As Directed, Special Instructions: Shampoo hair twice weekly PRN, Dispense Quantity: 120 mL, Refills: 1, Entered: 12/05/23 16:19:00 EST, [facility] 4 Active predniSONE 10 mg tabletIndicatio ns:Systemic lupus erythematosus, unspecified SLE type, unspecified organ involvement status (HCC) 20 mg PO qAM 60 tablet 1 5 Active ondansetron 4 mg tabletIndicatio ns:Systemic lupus erythematosus, unspecified SLE type, unspecified organ involvement status (HCC) Take 4 mg = 1 tablet by mouth every 8 hours if needed for nausea. 20 tablet 1 5 Active cholecalciferol 25 MCG (1000 UT) tabletIndicatio ns:Systemic lupus erythematosus, unspecified SLE type, unspecified organ involvement status (HCC) Take 25 mcg = 1 tablet by mouth 1 time each day. 30 tablet 3 5 Active amitriptyline 25 mg tabletIndicatio ns:Systemic lupus erythematosus, unspecified SLE type, unspecified organ involvement status (HCC) Take 25 mg = 1 tablet by mouth at bedtime. 30 tablet 1 5 Active omeprazole [address] capsuleIndicati ons:Systemic lupus erythematosus, unspecified SLE type, unspecified organ involvement status (HCC) Take 40 mg = 1 capsule by mouth in the morning. Take before meals. Do not crush or chew. 30 capsule 3 5 Active azaTHIOprine 50 mg tabletIndicatio ns:Systemic lupus erythematosus, unspecified SLE type, unspecified organ involvement status (HCC) Take 125 mg = 2.5 tablets by mouth 1 time each day. 75 tablet 5 Active hydroxychloroqu ine (PlaqueniL) 200 mg tabletIndicatio ns:Systemic lupus erythematosus, unspecified SLE type, unspecified organ involvement status (HCC) Take 300 mg = 1.5 tablets by mouth 1 time each day. 45 tablet 5 Active hydroxychloroqu ine (PlaqueniL) 200 mg tabletIndicatio ns:Systemic lupus erythematosus, unspecified SLE type, unspecified organ involvement status (HCC) Take 300 mg total = 1.5 tablets by mouth 1 time each day. 45 tablet 2 4 06/09/20 25 Discontinu ed(Reorder ) Encounters Date Type Department Care Team Description 05/24/2025 Telephone [facility] [address] [place] [address] Vanita Lindsey RN 04/20/2025 Refill [facility] [address] [place] [address] Ifeoma Montemayor RN Systemic lupus erythematosus, unspecified SLE type, unspecified organ involvement status (HCC) (Primary Dx) from Last 3 Months Immunizations Immunization Administration Dates Next Due HPV, Unspecified 07/03/2016,03/01/2016 Hep A, Unspecified 02/12/2017,03/01/2016 Meningococcal ACWY, unspecified 02/12/2017 Pfizer Purple Cap SARS-CoV-2 05/23/2021,05/02/20 21 Social History Tobacco Use Types Packs/Day Years Used Date Smoking Tobacco: Never Assessed Comments Unknown Sex and Gender Information Value Date Recorded Sex Assigned at Female 03/03/2024 10:12 PM EDT Legal Sex Female 10:12 PM EDT Gender Identity Not on file Sexual Orientation Not on file Last Filed Vital Signs Vital Sign Reading Time Taken Comments Blood Pressure 120/80 03/02/2025 9:41 AM EDT Pulse 84 03/02/2025 9:41 AM EDT Temperature 36.4 C (97.5 F) 03/02/2025 9:41 AM EDT Respiratory Rate - - Oxygen Saturation 100% 05/01/2022 2:43 PM EDT Inhaled Oxygen Concentration - - Weight 54 kg (119 lb 0.8 oz) 03/02/2025 9:41 AM EDT Height 158.8 cm (5' 2.52 ) 03/02/2025 9:41 AM ED T Body Mass Index 21.41 03/02/2025 9:41 AM EDT Plan of Treatment Health Maintenance Due Date Last Done Comments HIV Screening 1999 MMR Vaccines (1 of 1 - Standard series) 2000 Varicella Vaccines (1 of 2 - 13+ 2-dose series) 2012 HPV Vaccines (3 - Risk 3-dos e series) 11/02/2016 07/03/2016, 03/01/2016 Hepatitis C Screening 2017 Hepatitis B Vaccines (1 of 3 - 19+ 3-dose series) 2018 Pneumococcal Vaccine: Pediatrics (0 to 5 Years) and At-Risk Patients (6 to 49 Years) (1 of 2 - PCV) 2018 COVID-19 Vaccine (3 - Pfizer risk series) 06/20/2021 05/23/2021, 05/02/2021 DTaP/Tdap/Td Vaccines (3 - T d or Tdap) 12/08/2024 06/07/2024, 11/10/2023 Influenza Vaccine (#1) 2025 Hepatitis A Vaccines Completed 02/12/2017, 03/01/2016 Meningococcal Vaccine Completed 02/12/2017 , 02/12/2017 HIB Vaccines Aged Out No longer eligi ble based on patient's age to complete this topic IPV Vaccines Aged Out No longer eligi ble based on patient's age to complete this topic Meningococcal B Vaccine Aged Out No l onger eligible based on patient's age to complete this topic Rotavirus Vaccines Aged Out No longer eligible based on patient's age to complete this topic Additional Health Concerns Infection Onset Date Last Indicated ESBL Producing Organism 01/09/2021 04/24/20 24 Insurance [facility] Care Teams Asphalt Paving Foreman Relationship Specialty Start Date End Date Abril Li [address] [place] [address] PCP - General Internal Medicine 03/02/25
== END 2025-07-08 15:12 | disposition home or self-care (01) ==
LOC: HO.HMCH 14:27
DX: K58.9 Irritable bowel syndrome, unspecified (principal); J45.909 Unspecified asthma, uncomplicated; M32.9 Systemic lupus erythematosus, unspecified; G43.109 Migraine with aura, not intractable, without status migrainosus; R07.9 Chest pain, unspecified; K21.9 Gastro-esophageal reflux disease without esophagitis; L50.9 Urticaria, unspecified

== ENCOUNTER → 2025-07-08 14:26 | Outpatient (BNVA) | payer OTHER, SELFPAY | DX: K21.9 Gastro-esophageal reflux disease without esophagitis (principal); J45.909 Unspecified asthma, uncomplicated; F41.9 Anxiety disorder, unspecified; F32.A Depression, unspecified; K58.9 Irritable bowel syndrome, unspecified; L50.8 Other urticaria; M32.9 Systemic lupus erythematosus, unspecified; G43.109 Migraine with aura, not intractable, without status migrainosus; R07.9 Chest pain, unspecified; L50.9 Urticaria, unspecified | CPT/HCPCS: 96127; 99212 ==

== ENCOUNTER 2025-10-12 13:45 | Outpatient (AMB) | payer OTHER, SELFPAY ==
[2025-10-12 14:04] VITALS: BP 120/80; PULSE 63; TEMP 36.3; O2SAT 99
--- NOTE | 2025-10-12 14:04 | A.OFFPC_ITS ---
Vital Signs 10/12/25 14:04 Height 5 ft 2 in BP 120/80 Blood Pressure Location Lt brachial Position Sitting Pulse 63 Pulse Source Pulse Oximeter Temp 97.3 F Temp Source Temporal Artery Scan Pulse Oximetry (%) 99 Oxygen Delivery Method Room Air Intake Visit Reasons: f/u GERD Clinical Interviewer Required: No Accompanied by: Self / Same As Patient Allergies rituximab (RITUXIMAB) Allergy (Severe, Verified 10/12/25 14:16) ANAPHYLAXIS cinnamon (CINNAMON) Allergy (Unknown, Verified 10/12/25 14:16) RASH Medication List - Last Reconciled 10/12/25 by Deirdre Wells PA-C albuterol sulfate 90 mcg/actuation (Ventolin HFA) 2 puffs inhalation Q4-6H PRN amitriptyline 50 mg PO BEDTIME azathioprine 100 mg PO DAILY cholecalciferol (vitamin D3) 25 mcg PO DAILY famotidine 40 mg PO BEDTIME fexofenadine (Cahrley Allergy) 60 mg PO BID hydroxychloroquine 300 mg PO DAILY ondansetron HCl 4 mg PO Q8H PRN sumatriptan succinate take 1 tab at onset of headache; if no relief may repeat 1 tab after at least 2 hrs; max = 4 tabs/24 hr PO triamcinolone acetonide 0.1% 1 appl topical DAILY 14 days Tobacco use date assessed: 07/08/25 Dental Screening Dental Screen Date: 07/08/25 Did you have a dental visit in the last 12 months?: No Did you have a dental problem in the last 6 months where you did not have access to dental care?: No Was dental information given to patient?: No HPI f/u GERD HPI Details 25-year-old female with past medical his tory of migraine, lupus, asthma, anxiety, depression, IBS last seen 06/2025 coming in for follow up.?At her last visit patient was started on sumatriptan for migraines and amitriptyline was increased to 50 mg and referral was placed to Neurology patient was started on famotidine 40 mg for GERD. Presenting for follow-up on management of migraines, acid reflux, and chest pain, as well as a request for anxiety medication and medication refills. The patient continues to experience migraines that last most of the day, despite an increase of amitriptyline to 50 mg at her last visit, a medication she feels is not helping. She has been unable to contact a neurologist for a consultation. For acid reflux, an increased dose of famotidine provides intermittent relief. She experiences symptoms once or twice a week, described as dull and sharp chest pain, difficulty breathing and swallowing, and a sensation like a heart attack, which can last for an entire day. A prior upper GI series showed mild acid reflux and a hiatal hernia. The patient has been unable to schedule a previously ordered stress test. The patient reports worsening anxiety that is making it hard to function and requests medication. She recalls a past medication trial, believed to be fluoxetine, which caused extreme shakiness. [facility] Medical History Low libido Sinusitis Vaginal discharge Excessive cerumen in both ear canals Migraine with aura History of anxiety History of depression Stress headaches IBS (irritable bowel syndrome) Lupus Surgical History Hx of appendectomy Family History Maternal Aunt History of breast cancer Social History Housing: House Alcohol intake: current Alcohol intake frequency: holidays/special occasions only Patient Tobacco Use Status: Never used Tobacco e-Cigarette/Vaping Use: Never Used Second Hand Smoke Exposure: No service: No Current occupational status: employed and student Sexual orientation: Straight/Heterosexual Gender identity: Female Cognitive needs: No Hearing needs: No Vision needs: Yes (Glasses) Female Reproductive History Menstrual Age of Menarche: 17 Questionnaire PHQ-9 Over the last 2 weeks, how often have you been bothered by any of the following problems? 1. Little interest or pleasure in doing things: more than half the days 2. Feeling down, depressed, or hopeless: nearly every day 3. Trouble falling or staying asleep, or sleeping too much: nearly every day 4. Feeling tired or having little energy: nearly every day 5. Poor appetite or overeating: several days 6. Feeling bad about yourself - or that you are a failure or have let yourself or your family down: more than half the days 7. Trouble concentrating on things, such as reading the newspaper or watching television: several days 8. Moving or speaking so slowly that other people could have noticed. Or the opposite - being so fidgety or restless that you have been moving around a lot more than usual: more than half the days 9. Thoughts that you would be better off or of hurting yourself in some way: not at all Total score: 17 Source: Developed by Drs. Darrick Mejia, Michelle Mohamud, Jorge Luis Smith and colleagues, with an educational vega from [employer]. Thrive Questionnaire Date Thrive assessed: 07/07/25 I am a: Patient What is your living situation today?: I have a steady place to live Within the past 12 months, did the food you bought not last and you didn't have the money to get more?: I choose not to answer this question Within the past 12 months, did you worry whether your food would run out before you got money to buy more?: I choose not to answer this question Do you have trouble paying for medicines?: No Do you have trouble getting transportation to medical appointments?: No Do you have trouble paying your heating and electricity bill?: No Do you have trouble taking care of your child, family member or friend?: No Do you have trouble with day-to-day activities such as bathing, preparing meals, shopping, managing finances, etc.?: No Are you currently unemployed and looking for a job?: No Are you interested in more education?: Yes Please select the resources that you would like help with: None Currently or been in a relationship where the following occur: I choose not to answer THRIVE Score: 0 AUDIT C Alcohol Use Questionnaire (AUDIT-C) 1. How often do you have a drink containing alcohol?: Monthly or less 2. How many drinks containing alcohol do you have on a typical day when you are drinking?: 1 or 2 3. How often do you have six or more drinks on one occasion?: Never Total Score: 1 GERONIMO-7 AMB Questionnaire GERONIMO-7 Date GERONIMO - 7 assessed: 07/08/25 Feeling nervous, anxious, or on edge: 3 = Nearly every day Not being able to stop or control worryin = Nearly every day Worrying too much about different things: 3 = Nearly every day Trouble relaxin = More than half the days Being so restless that it is hard to sit still: 2 = More than half the days Becoming easily annoyed or irritable: 2 = More than half the days Feeling afraid as if something awful might happen: 1 = Several days Total GERONIMO-7 score (0-4 normal; 5-9 mild; 10-14 moderate; 15-21 severe): 16 Source: Developed by Drs. Darrick Mejia, Michelle Mohamud, Jorge Luis Smith and colleagues, with an educational vega from [employer]. Review of Systems Const Denies body aches, Denies chills, Denies fever(s), Reports headache(s) and Denies poor appetite Eyes Reports no additional complaints ENT Reports as per HPI, Denies dizziness, Reports headache(s) and Denies odynophagia Card Reports as per HPI, Denies chest pain, Denies edema, Denies lightheadedness and Denies dyspnea Resp Denies cough and Denies dyspnea GI Denies abdominal pain, Denies constipation, Reports dyspepsia, Reports heartburn, Denies diarrhea, Reports nausea, Denies odynophagia and Denies vomiting Reports no additional complaints Musc Reports no additional complaints and Denies abnormal gait Skin/Breast Reports system reviewed and no additional complaints, except as documented Neuro Denies abnormal gait, Denies dizziness and Reports headache(s) Psych Reports no additional complaints Physical exam (Primary Care) Vital Signs: Last Vital Signs Temp 97.3 F 10/12/25 14:04 Pulse 63 10/12/25 14:04 BP 120/80 10/12/25 14:04 Pulse Ox 99 10/12/25 14:04 Oxygen Delivery Method Room Air 10/12/25 14:04 Tobacco/Smoking Status: Tobacco use Status Tobacco use date assessed 07/08/25 10/12/25 14:08 Patient Tobacco Use Status Never used Tobacco 10/12/25 14:08 e-Cigarette/Vaping Use Never Used 10/12/25 14:08 PHQ-9: PHQ-9 Score PHQ-9: Total score 17 10/12/25 14:19 Thrive Assessment: Date of Thrive Assessment Date Thrive assessed 07/07/25 10/12/25 14:08 Currently or been in a relationship where the following occur: I choose not to answer Const General: cooperative, healthy appearing, comfortable and no acute distress Orientation/consciousness: patient oriented x3 HENMT Head: Yes normocephalic Ears: hearing grossly normal bilaterally General nose exam: Normal external nose present Eyes General: appearance normal, both eyes and all related structures Conjunctivae: conjunctivae normal Neck Neck: Yes full ROM and Yes no lymphadenopathy Resp Effort & Inspection: normal respiratory effort Auscultation: clear to auscultation bilaterally, no crackles, no rales, no rhonchi and no wheezes Cardio Rate: regular rate Rhythm: regular rhythm Skin General skin exam: no rashes or lesions noted Neuro General: patient oriented x3 Gait exam (Neuro): Normal gait present Extrem General: Yes normal to inspection, Yes full ROM and No edema Psych Affect: normal affect Attitude: cooperative Insight: Good insight present (Psych) Judgement: Good judgement present (Psych) Coding Level of Care Code Est Pt Level 4 (17065) Diagnoses GERD (gastroesophageal reflux disease) K21.9 IBS (irritable bowel syndrome) K58.9 Migraine without aura G43.009 Chest pain R07.9 Anxiety F41.9 Assessment & Plan Assessment & Plan (1) GERD (gastroesophageal reflux disease): Code(s): K21.9 - Gastro-esophageal reflux disease without esophagitis Category: Medical Plan: Avoid trigger foods such as citrus, tomato products, soda, caffeine, spicy foods and other foods that may be irritating to your stomach. Avoid laying flat 3-4 hours after eating and elevate the head of the bed 30 degrees to prevent acid from moving into the esophagus. Upper GI series showing GERD continue on famotidine [address] a referral to GI several months ago however patient did not make an appointment. Updated the referral today. She has been using [id number] omeprazole alongside the famotidine and finds this beneficial (2) IBS (irritable bowel syndrome): Code(s): K58.9 - Irritable bowel syndrome, unspecified Category: Medical Plan: Patient has alternating constipation and diarrhea consistent with IBS which has a previous diagnosis of hers. Discussed with patient about diet modification as she has not changed her diet and was given Low FODMAP diet information. (3) Migraine without aura: Code(s): G43.009 - Migraine without aura, not intractable, without status migrainosus Category: Medical Plan: The current regimen of amitriptyline 50 mg is ineffective for migraine prophylaxis. Amitriptyline will be discontinued via a taper of a half tablet for one week. A new prescription for topiramate 25 mg daily will be started after the amitriptyline taper is complete. A referral will be sent to Neurology at the [facility] for further evaluation and management, as the patient had difficulty reaching the [place] office. Referral to Neurology was placed several months ago and patient was unable to make an appointment. I did inform patient if she is unable to reach out to the neurology office to let us know right away. (4) Chest pain: Code(s): R07.9 - Chest pain, unspecified Category: Medical Plan: The patient's symptoms of chest pain and reflux are severe and not fully explained by prior imaging that showed only mild GERD. The plan is to continue famotidine and add a prescription for omeprazole. Further diagnostic workup is ordered, including a chest X-ray, an echocardiogram, and blood work, to rule out cardiac or pulmonary etiologies. The patient is instructed to reschedule her stress test. A referral to Gastroenterology will be placed for further evaluation. According to patient she has been trying to schedule the stress test and has been unable to do this. I did inform patient if she is having difficulty to reach out to the office immediately so we can better facilitate this. (5) Anxiety: Code(s): F41.9 - Anxiety disorder, unspecified Category: Medical Plan: The patient reports worsening anxiety that is affecting her ability to function. Given a history of an adverse reaction (shakiness) to fluoxetine, a trial of sertraline 25 mg daily will be initiated. The patient is advised to start the sertraline one week after initiating topiramate to better assess for side effects. She was counseled to stop the medication and notify the office if any side effects occur. Plan This note was constructed using voice recognition software. While every effort has been made to ensure accuracy and flaker operator, still areas may have been included sometimes these areas may affect the content or meeting of the given symptoms. Total time spent caring for the patient today was twenty minutes. This includes time spent before the visit reviewing the chart, time spent during the visit, and time spent after the visit and documentation. Patient was informed and verbally consented to the use of an ambient scribe for clinic note documentation during this visit. Orders: Orders CA echo transthoracic complete 10/12/25 R07.89 - Other chest pain XR chest 2V 10/12/25 R07.9 - Chest pain, unspecified Referrals [employer] Referral Z12.4 - Encounter for screening for malignant neoplasm of cervix Neurology Referral G43.009 - Migraine without aura, not intractable, without status migrainosus Gastroenterology Referral K21.9 - Gastro-esophageal reflux disease without esophagitis Medications: New sertraline 25 mg PO DAILY 90 tabs 0RF topiramate 25 mg PO DAILY 90 tabs 0RF omeprazole 20 mg PO DAILY 90 caps 0RF Discontinued amitriptyline Discontinued Reason: Patient no longer taking 50 mg PO BEDTIME 90 tabs 1RF
== END 2025-10-12 14:43 | disposition home or self-care (01) ==
LOC: HO.HMCH 13:46
DX: K21.9 Gastro-esophageal reflux disease without esophagitis (principal); K58.9 Irritable bowel syndrome, unspecified; G43.009 Migraine without aura, not intractable, without status migrainosus; R07.9 Chest pain, unspecified; F41.9 Anxiety disorder, unspecified

== ENCOUNTER → 2025-10-12 13:45 | Outpatient (BNVA) | payer OTHER, SELFPAY | DX: K21.9 Gastro-esophageal reflux disease without esophagitis (principal); K58.9 Irritable bowel syndrome, unspecified; G43.009 Migraine without aura, not intractable, without status migrainosus; R07.9 Chest pain, unspecified; F41.9 Anxiety disorder, unspecified | CPT/HCPCS: 99212 ==